=== PATIENT | female | born 1990 | race African-American/Black ===

== ENCOUNTER 2016-09-05 15:52 | Emergency (ER) | payer OTHER ==
[~2016-09-05] VITALS: Ht 167.6 cm; Wt 86.0 kg
[2016-09-05 16:06] VITALS: TEMP 36.3; Ht 167.6 cm; Wt 86.0 kg
[2016-09-05] MEDS ORDERED: ACETAMINOPHEN 500 MG TAB PO STA (16:18)
--- NOTE | 2016-09-05 16:45 | DIAGNOSTIC IMAGING REPORT ---
HEAD CT NONCONTRAST CT DOSE: 720.95 mGycm HISTORY: Trauma R temporal CHI - work injury TECHNIQUE: Multiaxial CT images of the head were performed without the use of intravenous contrast. Comparison: None. Findings: The paranasal sinuses and mastoid air cells are clear. The calvarium and skull base are intact. The ventricles and sulci are within normal limits. There is no mass, hematoma, midline shift, or acute infarct. Impression: No acute intracranial abnormality. Electronically signed by: Jorge Medellin M.D. 09/05/2016 4:43 PM Dictated Date/Time: 09/05/2016 4:41 PM
[2016-09-05] MEDS ORDERED: CITA40TA12 PO (17:01)
[2016-09-05 18:21] VITALS: BP 110/64; PULSE 74; O2SAT 98
--- NOTE | 2016-09-05 18:24 | EMERGENCY ROOM VISIT NOTE ---
History First contact with patient: 16:09 Chief Complaint: HEAD PAIN Stated Complaint: HEAD PAIN/FATIGUE-WORK RELATED INJURY History of Present Illness The patient is a 25 year old female who presents to the Emergency Room with complaints of multiple symptoms after sustaining a head injury this morning at work. The patient is employed at [employer]. At approximately 10:30 AM, the patient hit her right gnosticism on an end displaying while trying to avoid a coworker who was pushing a stocking cart toward her. The patient denies any loss of consciousness, but reports that her coworkers were telling her that she was dyslexic and confused, argumentative wear stocked items were located. The patient reports that she has had worsening fatigue and right-sided headache. She has also had nausea without vomiting. The patient reports a prior history of migraines, but reports that this feels different. The patient does report a prior history of significant concussion several years ago. She currently rates her discomfort a 7 out of 10. Review of Systems 10 system review was performed and was negative except for pertinent positives and negatives as indicated in history of present illness Past Medical/Surgical History Medical Problems: (1) Kidney stones Surgical Problems: (1) History of tubal ligation Family History FH: cancer FH: diabetes mellitus FH: gallbladder disease FH: hypertension FH: kidney disease Social History Smoking Status: Current Every Day Smoker Alcohol Use: occasionally Marital Status: single Housing Status: lives with family Occupation Status: employed Current/Historical Medications Scheduled Citalopram Hydrobromide (Celexa), 40 MG PO DAILY Allergies Coded Allergies: Latex1 -Allergic Contact Dermititis (Verified Allergy, Intermediate, Swelling/Hives, 09/05/16) Physical Exam Vital Signs Date Time Temp Pulse Resp B/P Pulse Ox O2 Delivery O2 Flow Rate FiO2 09/05/16 16:49 62 18 107/62 99 Room Air 09/05/16 16:06 36.3 73 18 127/82 95 Room Air Physical Exam CONSTITUTIONAL: Healthy and well nourished. Alert and oriented X 3 with positive affect. GCS 15. HEENT: Normocephalic, atraumatic. Pupils equal, round and reactive. No soft tissue edema, hematoma, laceration or abrasion. No subconjunctival hemorrhage, epistaxis, hemotympanum, raccoon's eyes or Hopper sign. NECK: Full active range of motion without discomfort. RESPIRATORY: Clear to auscultation bilaterally with no wheezing, crackles, rhonchi or stridor. CARDIOVASCULAR: Regular rate and rhythm with no murmurs, rubs or gallops. MUSCULOSKELETAL: Full range of motion of all joints without discomfort. INTEGUMENTARY: No rash or other significant dermatologic conditions noted. NEUROLOGIC: Cranial nerves II-XII grossly intact. No focal neurologic deficits noted. Normal finger to nose test. Negative pronator drift. No ataxia with ambulation. Medical Decision & Procedures ER Provider Diagnostic Interpretation: Noncontrast CT of the head does not show any acute fracture or intracranial bleed. Radiologist report is as follows: HEAD CT NONCONTRAST CT DOSE: 720.95 mGycm HISTORY: Trauma R temporal CHI - work injury TECHNIQUE: Multiaxial CT images of the head were performed without the use of intravenous contrast. Comparison: None. Findings: The paranasal sinuses and mastoid air cells are clear. The calvarium and skull base are intact. The ventricles and sulci are within normal limits. There is no mass, hematoma, midline shift, or acute infarct. Impression: No acute intracranial abnormality. Medications Administered Medications (Trade) Dose Ordered Sig/Pierre Route Start Time Stop Time Status Last Admin Dose Admin Acetaminophen (Tylenol Tab) 1,000 mg NOW STAT PO 09/05/16 16:18 09/05/16 16:20 DC 09/05/16 16:25 1,000 MG ED Course Patient history and physical exam were performed. Nurse's notes were reviewed. The patient was administered Tylenol 1 g. She refused any antiemetics. Noncontrast CT of the head was normal. The patient was advised of her normal CT studies. The patient was advised to alternate ibuprofen and Tylenol as needed for pain. She refused any stronger analgesics or antiemetics. She was encouraged to follow-up with the [facility] urgent care center, who is her Worker's Compensation carrier. The patient voiced understanding of all discharge instructions, was happy with plan of care, and rated her headache a 3 out of 10 at the time of discharge. Impression Primary Impression: Concussion Additional Impression: Work related injury Departure Information Referrals No Doctor, Assigned (PCP) Patient Instructions [facility] Problem Qualifiers Primary Impression: Concussion Encounter type: initial encounter Loss of consciousness presence/duration: without LOC Qualified Codes: S06.0X0A - Concussion without loss of consciousness, initial encounter
== END 2016-09-05 18:21 | disposition home or self-care (01) ==
LOC: C.EDB 15:55 → C.EDD 18:21
DX: S06.0X0A Concussion without loss of consciousness, initial encounter (principal); W22.8XXA Striking against or struck by other objects, initial encounter; Y92.89 Other specified places as the place of occurrence of the external cause; Y99.0 Civilian activity done for income or pay; F17.200 Nicotine dependence, unspecified, uncomplicated; Z87.442 Personal history of urinary calculi; Z79.899 Other long term (current) drug therapy; Z98.51 Tubal ligation status; Z91.040 Latex allergy status; Z80.9 Family history of malignant neoplasm, unspecified; Z83.3 Family history of diabetes mellitus; Z83.79 Family history of other diseases of the digestive system; Z82.49 Family history of ischemic heart disease and other diseases of the circulatory system; Z84.1 Family history of disorders of kidney and ureter